=== PATIENT | female | born 1935 | race Caucasian/White ===

== ENCOUNTER → 2021-02-04 | Outpatient (CLI) | payer MEDICARE, BC ==
--- NOTE | 2021-02-04 12:05 | RAD ---
EXAM: Pelvis, single view. HISTORY: Arthritis. COMPARISON: None. FINDINGS: A frontal view of the pelvis obtained. There is severe left hip joint space narrowing with subchondral scoliosis, subchondral cyst formation, marginal spurring and flattening of the superior a rticular aspect of the acetabulum and femoral head. There is degenerative change involving the lower lumbar spine, not formally assessed on this exam. There is degenerative subchondral sclerosis and vac uum phenomenon involving the sacroiliac joints. There is a transitional lumbosacral segment, a normal variant. IMPRESSION: 1. Severe end-stage osteoarthritis of the left hip with associated flattening of the superior acetabu lum and femoral head. 2. Degenerative change involving the lumbar spine. Electronically signed by: Sonja Reynoso MD (02/04/2021 12:02 PM) [id number]
== END ==
LOC: RAD 11:48
DX: M16.12 Unilateral primary osteoarthritis, left hip (principal); M47.816 Spondylosis without myelopathy or radiculopathy, lumbar region; M25.852 Other specified joint disorders, left hip
CPT/HCPCS: 72170